=== PATIENT | female | born 1945 | race Caucasian/White ===

== ENCOUNTER 2018-07-22 14:24 | Outpatient (RCR) | payer MEDICARE, OTHER, MEDICAID ==
[2018-07-25] MEDS ORDERED: FLUO20CA42 PO (13:13)
[2018-07-25] MEDS ORDERED: THYR25PO4 MC (13:13)
[2018-07-25] MEDS ORDERED: HYDR50TA76 PO (13:14)
[2018-07-25] MEDS ORDERED: CEPH-507 PO (16:06)
== END 2018-09-10 08:15 | disposition home or self-care (01) ==
PROVIDERS: ATTEND Nurse Practitioner Family
DX: M25.512 Pain in left shoulder (principal)

== ENCOUNTER 2018-07-25 12:40 | Emergency (ER) | payer MEDICARE, OTHER, MEDICAID ==
[~2018-07-25] VITALS: Ht 170.2 cm; Wt 96.2 kg
[2018-07-25] MEDS ORDERED: LACTATED RINGERS 1,000 ML IV ONE (12:58)
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
[2018-07-25] MEDS ORDERED: THYR25PO4 MC (13:13)
[2018-07-25] MEDS ORDERED: FLUO20CA42 PO (13:13)
[2018-07-25] MEDS ORDERED: HYDR50TA76 PO (13:14)
[2018-07-25 13:25] LABS: BASOPHILS % (AUTO) 0 % (0-10); EOSINOPHILS % (AUTO) 0 % (0-10); HEMATOCRIT 39 % (35-52); HEMOGLOBIN 12.5 G/DL (11.5-16.0); LYMPHOCYTES # (AUTO) 0.9 X 10^3 (1.0-4.0); LYMPHOCYTES % (AUTO) 12 % (12-44); MEAN CORPUSCULAR HEMOGLOBIN 29 PG (25-34); MEAN CORPUSCULAR HGB CONC 32 G/DL (32-36); MEAN CORPUSCULAR VOLUME 91 FL (80-99); MEAN PLATELET VOLUME 9.5 FL (7.4-10.4); MONOCYTES # (AUTO) 0.5 X 10^3 (0.0-1.0); MONOCYTES % (AUTO) 6 % (0-12); NEUTROPHILS # (AUTO) 6.3 X 10^3 (1.8-7.8); NEUTROPHILS % (AUTO) 81 % (42-75); PLATELET COUNT 278 10^3/uL (130-400); RED CELL DISTRIBUTION WIDTH 14.3 % (10.0-14.5); WHITE BLOOD COUNT 7.7 10^3/uL (4.3-11.0)
--- NOTE | 2018-07-25 13:26 | ED Fall/Injury ---
General Chief Complaint: Trauma-Non Activation Stated Complaint: WEAKNESS/FALL Nursing Triage Note: PT CO OF WEAKNESS AND FALL IN BATHROOM. PT STATES HAS WEAKNESS UNABLE TO GET UP TO WHEN FALL. PT DENIES LOC, DENIES INJURY CO OF WEAKNESS. PT ARRIVED PER EMS. HAS SL IN R HAND PT STATES WAS ON FLOOR FOR 2 HOURS. Source: patient Exam Limitations: no limitations History of Present Illness Date Seen by Provider: Jul 25, 2018 Time Seen by Provider: 13:00 Initial Comments This 73-year-old woman presents to the emergency room via EMS because of weakness and collapse at home. She has had progressive weakness throughout the morning and finally fell and was not able to get up. She laid on the floor for about 2 hours. She denies any traumatic injury with the fall. She has had chronic left shoulder pain for which she is doing self therapy. She also describes a benign brain tumor that is being tracked by her primary care provider and a neurosurgical team at [facility]. She reports her most recent scan done a few weeks back showed a slight increase in size. Patient denies any focal neurologic deficits. Her weakness is global and seems to affect the lower extremities more than the upper. She also has a tremor that seems exacerbated today. She occasionally has diarrhea but denies any acute episodes of vomiting or diarrhea. She denies urinary symptoms. She denies chest pain or shortness of breath. Patient denies any head or neck injury. She did lightly strike her head on the carpeted floor but does not feel that she was injured. Patient's primary care provider is Aubree Adams. Location Injury Occurred: HOME Allergies and Home Medications Allergies Coded Allergies: No Known Drug Allergies (Unverified , 07/25/18) Home Medications Cephalexin 500 Mg Capsule, 500 MG PO TID Prescribed by: YARA VALVERDE on 07/25/18 4734 Patient Home Medication List Home Medication List Reviewed: Yes Review of Systems Review of Systems Constitutional: see HPI Eyes: No Symptoms Reported Ears, Nose, Mouth, Throat: no symptoms reported Respiratory: no symptoms reported Cardiovascular: no symptoms reported Gastrointestinal: see HPI Genitourinary: no symptoms reported : No Musculoskeletal: see HPI Skin: no symptoms reported Psychiatric/Neurological: See HPI Past Lsobhpu-Gspwmg-Debajn Hx Past Med/Social Hx: Reviewed and Corrections made Patient Social History Alcohol Use: Denies Use Recreational Drug Use: No Smoking Status: Never a Smoker Recent Foreign Travel: No Contact w/Someone Who Travel: No Recent Infectious Disease Expo: No Recent Hopitalizations: No Physical Abuse: No Sexual Abuse: No Seasonal Allergies Seasonal Allergies: No Past Medical History Surgeries: No Respiratory: No Cardiac: Yes Hypertension Neurological: Yes (meningioma) Gastrointestinal: No Musculoskeletal: Yes (L SHOULDER PAIN) Endocrine: Yes Hypothyroidsim Cancer: Yes Brain (Meningioma, not yet characterized as cancer) Psychosocial: Yes Anxiety Integumentary: No Physical Exam Vital Signs Vital Signs - First Documented 07/25/18 12:40 Temp 98.1 Pulse 80 Resp 18 B/P (MAP) 175/88 (117) Pulse Ox 95 Capillary Refill : Less Than 3 Seconds Height, Weight, BMI Height: 5'7.00" Weight: 212lbs. oz. 96.662197fd; BMI Method:Stated General Appearance: WD/WN, no apparent distress HEENT: normal ENT inspection Neck: non-tender, full range of motion, normal inspection Cardiovascular: regular rate, rhythm, no edema, no murmur Respiratory: lungs clear, normal breath sounds, no respiratory distress, no accessory muscle use Gastrointestinal: normal bowel sounds, non tender, soft Extremities: normal inspection, no pedal edema Neurologic/Psychiatric: streetcar starter II-XII nml as tested, no motor/sensory deficits, alert, normal mood/affect, oriented x 3 Skin: normal color, warm/dry Hyacinth Coma Score Best Eye Response: (4) Open Spontaneously Best Verbal Response: (5) Oriented Best Motor Response: (6) Obeys Commands [place] Total: 15 Progress/Results/Core Measures Results/Orders Lab Results Laboratory Tests Test 07/25/18 12:45 07/25/18 13:38 Range/Units White Blood Count 7.7 4.3-11.0 10^3/uL Red Blood Count 4.31 L 4.35-5.85 10^6/uL Hemoglobin 12.5 11.5-16.0 G/DL Hematocrit 39 35-52 % Mean Corpuscular Volume 91 80-99 FL Mean Corpuscular Hemoglobin 29 25-34 PG Mean Corpuscular Hemoglobin Concent 32 32-36 G/DL Red Cell Distribution Width 14.3 10.0-14.5 % Platelet Count 278 130-400 10^3/uL Mean Platelet Volume 9.5 7.4-10.4 FL Neutrophils (%) (Auto) 81 H 42-75 % Lymphocytes (%) (Auto) 12 12-44 % Monocytes (%) (Auto) 6 0-12 % Eosinophils (%) (Auto) 0 0-10 % Basophils (%) (Auto) 0 0-10 % Neutrophils # (Auto) 6.3 1.8-7.8 X 10^3 Lymphocytes # (Auto) 0.9 L 1.0-4.0 X 10^3 Monocytes # (Auto) 0.5 0.0-1.0 X 10^3 Eosinophils # (Auto) 0.0 0.0-0.3 10^3/uL Basophils # (Auto) 0.0 0.0-0.1 10^3/uL Sodium Level 142 135-145 MMOL/L Potassium Level 4.8 3.6-5.0 MMOL/L Chloride Level 107 98-107 MMOL/L Carbon Dioxide Level 21 21-32 MMOL/L Anion Gap 14 5-14 MMOL/L Blood Urea Nitrogen 19 H 7-18 MG/DL Creatinine 0.82 0.60-1.30 MG/DL Estimat Glomerular Filtration Rate > 60 BUN/Creatinine Ratio 23 Glucose Level 110 H 70-105 MG/DL Calcium Level 9.3 8.5-10.1 MG/DL Corrected Calcium 9.5 8.5-10.1 MG/DL Magnesium Level 2.7 H 1.8-2.4 MG/DL Total Bilirubin 0.3 0.1-1.0 MG/DL Aspartate Amino Transf (AST/SGOT) 38 H 5-34 U/L Alanine Aminotransferase (ALT/SGPT) 17 0-55 U/L Alkaline Phosphatase 66 40-136 U/L Total Creatine Kinase 210 H 29-168 U/L C-Reactive Protein High Sensitivity 0.24 0.00-0.50 MG/DL Total Protein 7.5 6.4-8.2 GM/DL Albumin 3.8 3.2-4.5 GM/DL Thyroid Stimulating Hormone (TSH) 1.58 0.35-4.94 UIU/ML Free Thyroxine 0.77 0.70-1.48 NG/DL Urine Color YELLOW Urine Clarity CLEAR Urine pH 5 5-9 Urine Specific [place] 1.025 H 1.016-1.022 Urine Protein 1+ H NEGATIVE Urine Glucose (UA) NEGATIVE NEGATIVE Urine Ketones 1+ H NEGATIVE Urine Nitrite NEGATIVE NEGATIVE Urine Bilirubin NEGATIVE NEGATIVE Urine Urobilinogen NORMAL NORMAL MG/DL Urine Leukocyte Esterase 1+ H NEGATIVE Urine RBC (Auto) 5+ H NEGATIVE Urine RBC 50-100 H /HPF Urine WBC 10-25 H /HPF Urine Squamous Epithelial Cells RARE /HPF Urine Crystals NONE /LPF Urine Bacteria LARGE H /HPF Urine Casts NONE /LPF Urine Mucus LARGE H /LPF Urine Culture Indicated NO My Orders Orders - YARA NEWTON MD Cbc With Automated Diff (07/25/18 12:58) Comprehensive Metabolic Panel (07/25/18 12:58) Hs C Reactive Protein (07/25/18 12:58) Magnesium (07/25/18 12:58) Thyroid Stimulating Hormone (07/25/18 12:58) Ua Culture If Indicated (07/25/18 12:58) Creatine Kinase (07/25/18 12:58) Ct Head Wo (07/25/18 12:58) Saline Lock/Iv-Start (07/25/18 12:58) Lactated Ringers (Lr 1000 Ml Iv Solution (07/25/18 12:58) Ekg Tracing (07/25/18 12:58) Free T4 (Free Thyroxine) (07/25/18 13:26) Ceftriaxone For Iv Use (Rocephin For I (07/25/18 14:30) General/Regular (07/25/18 Dinner) Medications Given in ED Vital Signs/I&O 07/25/18 07/25/18 12:40 16:23 Temp 98.1 Pulse 80 80 Resp 18 18 B/P (MAP) 175/88 (117) 160/78 (105) Pulse Ox 95 95 07/26/18 00:00 Intake Total 1010 ml Balance 1010 ml Blood Pressure Mean: 117 Progress Progress Note : Progress Note Workup was pursued to evaluate causes of her weakness including CT of the head given history of brain mass. CT revealed an area of edema associated with meningioma. Acuity of this finding was uncertain. Since patient has no focal neurologic deficits, it is likely unrelated to her complaints today. However, stability needs to be insured. CT was sent via cloud to [facility]. I discussed the case with Dr. Valdez, stroke neurologist. She compared the CT with the MRI brain she had at [facility] on July 08. There were no significant interval changes on comparison. Patient was able to ambulate to the bathroom on her own power. She was provided assistance with a walker. The walker was dispensed to take home. She was dismissed home with arrangements to have a taxicab take her home and law-enforcement or fire to help her get in the house. Admission was discussed but patient felt safe being discharged and requested going home. I contacted being discharged to help facilitate patient's follow-up. Dr. Valdez recommended prompt follow-up with a neurosurgeon. Patient had previously planned to follow-up with a neurosurgeon she had seen in [place] at the [facility]. However, this is very far away and she has no connections to [place] other than previously living there. She is amenable to seeing a neurosurgeon closer to [place]. The [facility] clinic can help her arrange this during the workweek. Initial ECG Impression Date: Jul 25, 2018 Initial ECG Impression Time: 13:09 Initial ECG Rate: 80 Initial ECG Rhythm: Normal Sinus Initial ECG Impression: Normal Comment Normal sinus rhythm with no ST elevation or depression. No abnormal intervals or axis deviation. Diagnostic Imaging Diagonstic Imaging: CT Plain Films/CT/US/NM/MRI: head Comments CT head viewed by me and report reviewed. Discussed with the radiologist. See report below: NAME: MIKO PETER [facility] REC#: [id number] PT STATUS: REG ER : 1945 PHYSICIAN: YARA NEWTON MD ADMIT DATE: 07/25/18/ER Signed Date of Exam: 07/25/18 CT HEAD WO PROCEDURE: CT head without contrast. TECHNIQUE: Multiple contiguous axial images were obtained through the brain without the use of intravenous contrast. INDICATION: Altered mental status, fall. COMPARISON: None. DISCUSSION: Extensive low attenuation noted diffusely throughout the white matter of the right cerebral hemisphere which is of uncertain etiology though most consistent with edema. This appears to contribute to mass effect as there is leftward midline shift of 9 mm. Whether this represents an acute infarct or edema from an underlying lesion is indeterminate. Extra-axial mass noted along the anterior falx projecting to the right measures 4.5 x 2.6 cm and contains a small area of calcification. This could represent a meningioma though is indeterminate. Recommend brain MRI with contrast for further characterization of these 2 areas. No hydrocephalus or intracranial hemorrhage identified. The orbits, sinuses, mastoid air cells, and calvarium are unremarkable. IMPRESSION: 1. Extensive edema noted throughout the right frontoparietal white matter contributing to mass effect and leftward midline shift. No hemorrhage is identified. Findings are nonspecific and could be seen with large infarct or underlying vasogenic edema from obscured lesion. There is a large extra-axial mass along the anterior falx projecting into the right frontal lobe. There is an area of what appears to be central calcification present. Recommend MRI with contrast for further evaluation. Dictated by: Dictated on workstation # [id number] Dict: 07/25/18 1354 Trans: 07/25/18 1552 Interpreted by: RONIT TATE MD Electronically signed by: RONIT TATE MD 07/25/18 1557 Departure Impression Primary Impression: Fall on same level Qualified Codes: W18.30XA - Fall on same level, unspecified, initial encounter Additional Impressions: Generalized weakness Urinary tract infection Qualified Codes: N39.0 - Urinary tract infection, site not specified Meningioma Disposition: HOME, SELF-CARE Condition: Improved Departure-Patient Inst. Decision time for Depature: 15:40 Referrals: AUBREE ADAMS APRN (PCP) Primary Care Physician [facility] (Family) Primary Care Physician Patient Instructions: Urinary Tract Infection, Adult (DC) Add. Discharge Instructions: Ambulate with your walker for safety. Drink plenty of clear liquids. Complete your antibiotics as prescribed. Follow-up with your primary care provider on Thursday or Thursday. Review urine culture results at that time. Follow-up with a neurosurgeon as soon as possible. Return to care if you have worsening symptoms. All discharge instructions reviewed with patient and/or family. Voiced understanding. Scripts Cephalexin (Keflex) 500 Mg Capsule 500 MG PO TID, #20 CAP Prov: YARA NEWTON MD 07/25/18 Copy Copies To 1: MIKO BRIGGS JOSHUA T MD Jul 25, 2018 13:25
[2018-07-25 13:42] LABS: BILIRUBIN,URINE NEGATIVE (NEGATIVE); CLARITY,URINE CLEAR; COLOR,URINE YELLOW; GLUCOSE, URINE (UA) NEGATIVE (NEGATIVE); KETONES,URINE 1+ (NEGATIVE); LEUKOCYTE ESTERASE ,URINE 1+ (NEGATIVE); NITRITE,URINE NEGATIVE (NEGATIVE); PH,URINE 5 (5-9); PROTEIN,URINE 1+ (NEGATIVE); UROBILINOGEN,URINE NORMAL (NORMAL)
[2018-07-25 13:43] LABS: ALANINE AMINOTRANSFERASE 17 U/L (0-55); ALBUMIN 3.8 GM/DL (3.2-4.5); ALKALINE PHOSPHATASE 66 U/L (40-136); BILIRUBIN,TOTAL 0.3 MG/DL (0.1-1.0); BUN/CREATININE RATIO 23; CALCIUM 9.3 MG/DL (8.5-10.1); CARBON DIOXIDE 21 MMOL/L (21-32); CHLORIDE 107 MMOL/L (98-107); CREATINE KINASE 210 U/L (29-168); CREATININE SERUM 0.82 MG/DL (0.60-1.30); GFR ESTIMATED > 60; GLUCOSE 110 MG/DL (70-105); MAGNESIUM 2.7 MG/DL (1.8-2.4); SODIUM 142 MMOL/L (135-145); TOTAL PROTEIN 7.5 GM/DL (6.4-8.2)
[2018-07-25 13:44] LABS: POTASSIUM 4.8 MMOL/L (3.6-5.0)
[2018-07-25 13:53] LABS: BACTERIA,URINE LARGE /HPF; RBC,URINE 50-100 /HPF; SQUAMOUS EPITHELIAL CELL,UR RARE /HPF
--- NOTE | 2018-07-25 14:02 | Diagnostic Imaging Report ---
PROCEDURE: CT head without contrast. TECHNIQUE: Multiple contiguous axial images were obtained through the brain without the use of intravenous contrast. INDICATION: Altered mental status, fall. COMPARISON: None. DISCUSSION: Extensive low attenuation noted diffusely throughout the white matter of the right cerebral hemisphere which is of uncertain etiology though most consistent with edema. This appears to contribute to mass effect as there is leftward midline shift of 9 mm. Whether this represents an acute infarct or edema from an underlying lesion is indeterminate. Extra-axial mass noted along the anterior falx projecting to the right measures 4.5 x 2.6 cm and contains a small area of calcification. This could represent a meningioma though is indeterminate. Recommend brain MRI with contrast for further characterization of these 2 areas. No hydrocephalus or intracranial hemorrhage identified. The orbits, sinuses, mastoid air cells, and calvarium are unremarkable. IMPRESSION: 1. Extensive edema noted throughout the right frontoparietal white matter contributing to mass effect and leftward midline shift. No hemorrhage is identified. Findings are nonspecific and could be seen with large infarct or underlying vasogenic edema from obscured lesion. There is a large extra-axial mass along the anterior falx projecting into the right frontal lobe. There is an area of what appears to be central calcification present. Recommend MRI with contrast for further evaluation. Dictated by: Dictated on workstation # [id number]
[2018-07-25] MEDS ORDERED: cefTRIAXone FOR IV USE 1,000 MG in WATER (STERILE) FOR INJECTION 10 ML IV ONE (14:30)
[2018-07-25] MEDS ORDERED: CEPH-507 PO (16:06)
[2018-07-25 16:23] VITALS: BP 160/78
--- NOTE | 2018-07-25 16:27 | NUR ---
[facility] CALLED BY PT
== END 2018-07-25 16:37 | disposition home or self-care (01) ==
LOC: EDUNIT# 12:55 → ER 12:56
DX: R53.1 Weakness (principal); N39.0 Urinary tract infection, site not specified; D32.0 Benign neoplasm of cerebral meninges; I10 Essential (primary) hypertension; E03.9 Hypothyroidism, unspecified; F41.9 Anxiety disorder, unspecified; R40.2142 Coma scale, eyes open, spontaneous, at arrival to emergency department; R40.2252 Coma scale, best verbal response, oriented, at arrival to emergency department; R40.2362 Coma scale, best motor response, obeys commands, at arrival to emergency department; W18.39XA Other fall on same level, initial encounter; Y92.009 Unspecified place in unspecified non-institutional (private) residence as the place of occurrence of the external cause
CPT/HCPCS: 36415; 70450; 80053; 81000; 82550; 83735; 84439; 84443; 85025; 86141; 93005

== ENCOUNTER 2018-07-26 12:54 | Emergency (ER) | payer MEDICARE, OTHER, MEDICAID ==
[~2018-07-26] VITALS: Ht 170.2 cm; Wt 95.3 kg
[~2018-07-26 12:54] MED LIST: CEPH-507 PO; FLUO20CA42 PO; HYDR50TA76 PO; THYR25PO4 MC
--- NOTE | 2018-07-26 13:33 | ED General ---
General Chief Complaint: General Problems/Pain Stated Complaint: WEAKNESS Nursing Triage Note: PT ARRIVED PER EMS, PT HAD EASED SELF TO BATHROOM FLOOR. PT DENIES PAIN AT THIS X. STATES DOES NOT KNOW WHY IS SO WEAK, PT REMINDED WAS SEEN IN ED YESTERDAY AND HAD UTI, PT STATES OH YEAH, I HAVE NOT TAKEN ANY OF MY MEDS TODAY. PT STATES DID NOT GET UP VERY EARLY TODAY. Nursing Sepsis Screen: No Definite Risk Source of Information: Patient Exam Limitations: No Limitations History of Present Illness Date Seen by Provider: Jul 26, 2018 Time Seen by Provider: 13:31 Initial Comments To ER per EMS from home with reports of generalized weakness. Patient was here yesterday for the same, diagnosed with urinary tract infection and refused admission. She was given IV antibiotics, sent home with a prescription for Keflex, she did get the prescription filled but has not yet taken it today. She denies fevers or chills, today she went to the toilet, stood up and then bent forward to strip picker a towel. When she attempted to stand back up she felt so weak that she could not do so. She's had diarrhea and has been incontinent of stool today as well. She states that she did not strike her head on anything and the fall to the floor was in fact not a fall but she lowered herself to the floor slowly. She denies any pain or other symptoms other than generalized weakness [facility] These episodes of falling and generalized weakness have been increasing. Timing/Duration: 1-2 Days Severity: Moderate Associated Systoms: Weakness Allergies and Home Medications Allergies Coded Allergies: No Known Drug Allergies (Unverified , 07/25/18) Home Medications Cephalexin 500 Mg Capsule, 500 MG PO TID Prescribed by: YARA VALVERDE on 07/25/18 4444 Patient Home Medication List Home Medication List Reviewed: Yes Review of Systems Review of Systems Constitutional: see HPI EENTM: see HPI Respiratory: no symptoms reported Cardiovascular: no symptoms reported Genitourinary: no symptoms reported Musculoskeletal: no symptoms reported Skin: no symptoms reported Psychiatric/Neurological: No Symptoms Reported Past [place]rp Hx Patient Social History Alcohol Use: Regular Use Number of Drinks Today: 0 Recreational Drug Use: No Smoking Status: Current Everyday Smoker Type Used: Cigarettes Recent Foreign Travel: No Contact w/Someone Who Travel: No Recent Infectious Disease Expo: No Recent Hopitalizations: No Seasonal Allergies Seasonal Allergies: No Past Medical History Surgeries: No Respiratory: No Cardiac: Yes Hypertension Neurological: Yes (meningioma) Gastrointestinal: No Musculoskeletal: Yes (L SHOULDER PAIN) Endocrine: Yes Hypothyroidsim Cancer: No Psychosocial: Yes Anxiety Integumentary: No Physical Exam Vital Signs Vital Signs - First Documented 07/26/18 12:55 Temp 98.0 Pulse 7 Resp 18 B/P (MAP) 150/87 (108) Pulse Ox 95 O2 Delivery Room Air Capillary Refill : Less Than 3 Seconds Height, Weight, BMI Height: 5'7.00" Weight: 210lbs. oz. 95.762891vl; BMI Method:Stated General Appearance: No Apparent Distress, WD/WN Eyes: Bilateral Eye Normal Inspection, Bilateral Eye PERRL, Bilateral Eye EOMI HEENT: PERRL/EOMI, TMs Normal Respiratory: No Accessory Muscle Use, No Respiratory Distress Gastrointestinal: Non Tender, Soft Extremity: Normal Capillary Refill, Normal Inspection Neurologic/Psychiatric: Alert, Oriented x3 Skin: Normal Color, Warm/Dry Focused Exam Lactate Level 07/26/18 15:15: Lactic Acid Level 1.04 Lactic Acid Level Laboratory Tests Test 07/26/18 15:15 Lactic Acid Level 1.04 MMOL/L (0.50-2.00) Progress/Results/Core Measures Suspected Sepsis Recent Fever Within 48 Hours: No Infection Criteria Present: None New/Unexplained Altered Menta: No Sepsis Screen: No Definite Risk SIRS Temperature:98.0 Pulse: 7 Respiratory Rate: 18 Laboratory Tests 07/26/18 13:50: White Blood Count 6.7 Blood Pressure 150 /87 Mean: 108 07/26/18 15:15: Lactic Acid Level 1.04 Laboratory Tests 07/26/18 13:50: Creatinine 0.76, Platelet Count 266, Total Bilirubin 0.4 Results/Orders Lab Results Laboratory Tests Test 07/26/18 13:50 07/26/18 15:15 07/26/18 15:40 Range/Units White Blood Count 6.7 4.3-11.0 10^3/uL Red Blood Count 3.91 L 4.35-5.85 10^6/uL Hemoglobin 11.4 L 11.5-16.0 G/DL Hematocrit 36 35-52 % Mean Corpuscular Volume 91 80-99 FL Mean Corpuscular Hemoglobin 29 25-34 PG Mean Corpuscular Hemoglobin Concent 32 32-36 G/DL Red Cell Distribution Width 14.2 10.0-14.5 % Platelet Count 266 130-400 10^3/uL Mean Platelet Volume 9.0 7.4-10.4 FL Neutrophils (%) (Auto) 77 H 42-75 % Lymphocytes (%) (Auto) 14 12-44 % Monocytes (%) (Auto) 8 0-12 % Eosinophils (%) (Auto) 1 0-10 % Basophils (%) (Auto) 0 0-10 % Neutrophils # (Auto) 5.2 1.8-7.8 X 10^3 Lymphocytes # (Auto) 1.0 1.0-4.0 X 10^3 Monocytes # (Auto) 0.5 0.0-1.0 X 10^3 Eosinophils # (Auto) 0.1 0.0-0.3 10^3/uL Basophils # (Auto) 0.0 0.0-0.1 10^3/uL Sodium Level 144 135-145 MMOL/L Potassium Level 3.8 3.6-5.0 MMOL/L Chloride Level 108 H 98-107 MMOL/L Carbon Dioxide Level 24 21-32 MMOL/L Anion Gap 12 5-14 MMOL/L Blood Urea Nitrogen 13 7-18 MG/DL Creatinine 0.76 0.60-1.30 MG/DL Estimat Glomerular Filtration Rate > 60 BUN/Creatinine Ratio 17 Glucose Level 111 H 70-105 MG/DL Calcium Level 9.1 8.5-10.1 MG/DL Corrected Calcium 9.3 8.5-10.1 MG/DL Total Bilirubin 0.4 0.1-1.0 MG/DL Aspartate Amino Transf (AST/SGOT) 33 5-34 U/L Alanine Aminotransferase (ALT/SGPT) 18 0-55 U/L Alkaline Phosphatase 61 40-136 U/L Total Protein 6.5 6.4-8.2 GM/DL Albumin 3.7 3.2-4.5 GM/DL Lactic Acid Level 1.04 0.50-2.00 MMOL/L Urine Color YELLOW Urine Clarity SLIGHTLY CLOUDY Urine pH 6 5-9 Urine Specific [place] 1.015 L 1.016-1.022 Urine Protein NEGATIVE NEGATIVE Urine Glucose (UA) NEGATIVE NEGATIVE Urine Ketones 1+ H NEGATIVE Urine Nitrite NEGATIVE NEGATIVE Urine Bilirubin NEGATIVE NEGATIVE Urine Urobilinogen NORMAL NORMAL MG/DL Urine Leukocyte Esterase NEGATIVE NEGATIVE Urine RBC (Auto) 2+ H NEGATIVE Urine RBC NONE /HPF Urine WBC NONE /HPF Urine Squamous Epithelial Cells RARE /HPF Urine Crystals NONE /LPF Urine Bacteria NEGATIVE /HPF Urine Casts NONE /LPF Urine Mucus NEGATIVE /LPF Urine Culture Indicated NO My Orders Orders - JERZY THOMAS BILLIARD PARLOR MANAGER Cbc With Automated Diff (07/26/18 13:10) Comprehensive Metabolic Panel (07/26/18 13:10) Ua Culture If Indicated (07/26/18 13:10) Chest 1 View, Ap/Pa Only (07/26/18 13:10) Iv Heplock-Insert (Order) (07/26/18 13:10) Pt Evaluate/Treat Request (07/26/18 14:20) Weight Bearing Status (07/26/18 14:20) Ct Chest W (07/26/18 14:23) Blood Culture (07/26/18 14:23) Lactic Acid Analyzer (07/26/18 14:23) Iohexol Injection (Omnipaque 350 Mg/Ml 1 (07/26/18 14:45) Received Contrast (Contrast Received) (07/26/18 14:45) Ns (Ivpb) (Sodium Chloride 0.9% Ivpb Bag (07/26/18 14:45) Patient Visit (07/26/18 ) Pt Eval Moderate Complexity (07/26/18 ) Functional Activities, Ea 15 (07/26/18 ) Acetaminophen Tablet/Caplet (Tylenol T (07/26/18 16:15) General/Regular (07/26/18 Lunch) Medications Given in ED Current Medications Medications Dose Ordered Sig/Christy Route Start Time Stop Time Status Last Admin Dose Admin Acetaminophen 650 mg ONCE ONCE PO 07/26/18 16:15 07/26/18 16:16 DC 07/26/18 16:23 650 MG Iohexol 75 ml ONCE ONCE IV 07/26/18 14:45 07/26/18 14:46 DC 07/26/18 14:45 75 ML Sodium Chloride 100 ml ONCE ONCE IV 07/26/18 14:45 07/26/18 14:46 DC 07/26/18 14:45 80 ML Vital Signs/I&O 3/11/19 12:55 Temp 98.0 Pulse 7 Resp 18 B/P (MAP) 150/87 (108) Pulse Ox 95 O2 Delivery Room Air Capillary Refill : Less Than 3 Seconds Blood Pressure Mean: 108 Diagnostic Imaging Diagonstic Imaging: CT Departure Communication (Admissions) Family Conversation Patient's sister, VIJAY Meehan ([phone]) from [place] has called to report that the patient's falls have increased. She has this known right meningioma with a left midline shift of 9 mm, this is been present including the shift of 9 mm since last year when this was identified. She states that her mother had dementia that presented about this age as well. She is agreeable with my plan to transfer the patient on to [facility] for neurology evaluation. 1640-Dr Solo (hospitalist) and Dr Hilton (neurosurgery) agree to accept pt in transfer to [facility]. 1420- NAME: MIKO PETER [facility] REC#: [id number] PHYSICIAN: YARA NEWTON MD CC: YARA NEWTON MD; RONIT TATE MD Page 2 of 2 RADIOLOGY REPORT [facility] [place] CC: YARA NEWTON MD; RONIT TATE MD Page 1 of 2 RADIOLOGY REPORT NAME: MIKO PETER [facility] REC#: [id number] PT STATUS: REG ER : 1945 PHYSICIAN: YARA NEWTON MD ADMIT DATE: 07/25/18/ER Signed Date of Exam: 07/25/18 CT HEAD WO PROCEDURE: CT head without contrast. TECHNIQUE: Multiple contiguous axial images were obtained through the brain without the use of intravenous contrast. INDICATION: Altered mental status, fall. COMPARISON: None. DISCUSSION: Extensive low attenuation noted diffusely throughout the white matter of the right cerebral hemisphere which is of uncertain etiology though most consistent with edema. This appears to contribute to mass effect as there is leftward midline shift of 9 mm. Whether this represents an acute infarct or edema from an underlying lesion is indeterminate. Extra-axial mass noted along the anterior falx projecting to the right measures 4.5 x 2.6 cm and contains a small area of calcification. This could represent a meningioma though is indeterminate. Recommend brain MRI with contrast for further characterization of these 2 areas. No hydrocephalus or intracranial hemorrhage identified. The orbits, sinuses, mastoid air cells, and calvarium are unremarkable. IMPRESSION: 1. Extensive edema noted throughout the right frontoparietal white matter contributing to mass effect and leftward midline shift. No hemorrhage is identified. Findings are nonspecific and could be seen with large infarct or underlying vasogenic edema from obscured lesion. There is a large extra-axial mass along the anterior falx projecting into the right frontal lobe. There is an area of what appears to be central calcification present. Recommend MRI with contrast for further evaluation. Dictated by: Dictated on workstation # [id number] Dict: 07/25/18 1354 Trans: 07/25/18 1557 Interpreted by: RONIT TATE MD Electronically signed by: RONIT TATE MD 07/25/18 1557 Impression Primary Impression: General weakness Additional Impressions: Meningioma Vasogenic brain edema Disposition: XFER SHT-TRM HOSP Condition: Stable Departure-Patient Inst. Referrals: AUBREE MILLIGAN APRN (PCP) Primary Care Physician [facility] (Family) Primary Care Physician JERZY THOMAS APRN Jul 26, 2018 13:33
[2018-07-26 14:03] LABS: BASOPHILS % (AUTO) 0 % (0-10); EOSINOPHILS # (AUTO) 0.1 10^3/uL (0.0-0.3); EOSINOPHILS % (AUTO) 1 % (0-10); HEMATOCRIT 36 % (35-52); HEMOGLOBIN 11.4 G/DL (11.5-16.0); LYMPHOCYTES % (AUTO) 14 % (12-44); MEAN CORPUSCULAR HEMOGLOBIN 29 PG (25-34); MEAN CORPUSCULAR HGB CONC 32 G/DL (32-36); MEAN CORPUSCULAR VOLUME 91 FL (80-99); MONOCYTES # (AUTO) 0.5 X 10^3 (0.0-1.0); MONOCYTES % (AUTO) 8 % (0-12); NEUTROPHILS # (AUTO) 5.2 X 10^3 (1.8-7.8); NEUTROPHILS % (AUTO) 77 % (42-75); PLATELET COUNT 266 10^3/uL (130-400); RED CELL DISTRIBUTION WIDTH 14.2 % (10.0-14.5); WHITE BLOOD COUNT 6.7 10^3/uL (4.3-11.0)
--- NOTE | 2018-07-26 14:11 | Diagnostic Imaging Report ---
INDICATION: Weakness. TIME OF EXAM: 01:57 p.m. COMPARISON: No prior studies are available for comparison. FINDINGS: There appears to be some consolidation in the right base. Left lung is clear. Pulmonary vascularity is normal. There is no effusion or pneumothorax. IMPRESSION: Right basilar consolidation. Dictated by: Dictated on workstation # [id number]
--- NOTE | 2018-07-26 14:17 | NUR ---
REHAB HERE TO RUPESH GONZALEZ
[2018-07-26 14:21] LABS: ALANINE AMINOTRANSFERASE 18 U/L (0-55); ALBUMIN 3.7 GM/DL (3.2-4.5); ALKALINE PHOSPHATASE 61 U/L (40-136); BILIRUBIN,TOTAL 0.4 MG/DL (0.1-1.0); BUN/CREATININE RATIO 17; CALCIUM 9.1 MG/DL (8.5-10.1); CARBON DIOXIDE 24 MMOL/L (21-32); CHLORIDE 108 MMOL/L (98-107); CREATININE SERUM 0.76 MG/DL (0.60-1.30); GFR ESTIMATED > 60; GLUCOSE 111 MG/DL (70-105); POTASSIUM 3.8 MMOL/L (3.6-5.0); SODIUM 144 MMOL/L (135-145); TOTAL PROTEIN 6.5 GM/DL (6.4-8.2)
[2018-07-26] MEDS ORDERED: RECEIVED CONTRAST 20 ML VIAL IV SCH (14:45)
[2018-07-26] MEDS ORDERED: NS 100 ML (IVPB) BAG IV ONE (14:45)
[2018-07-26] MEDS ORDERED: IOHEXOL 350 MG/ML 100 ML (OMNIPAQUE 350) VIAL IV ONE (14:45)
--- NOTE | 2018-07-26 15:38 | Physical Therapy Evaluation ---
PT Evaluation-General Medical Diagnosis Admission Date 07/26/18 Medical Diagnosis: weakness Onset Date: Jul 26, 2018 Therapy Diagnosis Therapy Diagnosis: impaired mobility, endurance, strength Height/Weight Height (Feet): 5 Height (Inches): 7.00 Weight (Pounds): 210 Weight Bear Status Right Lower Extremity: Right Full Weight Bearing Left Lower Extremity: Left Full Weight Bearing Referral Physician: Drew Villaseñor APRN Reason for Referral: Evaluation/Treatment Medical History Pertinent Medical History: Smoking Additional Medical History Past Medical History Surgeries: No Respiratory: No Cardiac: Yes Hypertension Neurological: Yes (meningioma) Gastrointestinal: No Musculoskeletal: Yes (L SHOULDER PAIN) Endocrine: Yes Hypothyroidsim Cancer: No Psychosocial: Yes Anxiety Current History Patient has been falling at home and has generalized weakness, diagnosed recently with UTI. Reviewed History: Yes Prior/Core FIM Prior Level of Function Therapy Code Descriptions/Definitions Functional [place] Measure: 0=Not Assessed/NA 4=Minimal Assistance 1=Total Assistance 5=Supervision or Setup 2=Maximal Assistance 6=Modified [place] 3=Moderate Assistance 7=Complete [place] Therapy Quality Codes: 6 Independent with activity with or without an assistive device 5 Patient requires set up or clean up by helper. Patient completes activity by themselves 4 Supervision or touching assist (CGA). [place] provide cues , steadying assist 3 The helper provides less than half the effort to complete the activity 2 The helper provides more than half the effort to complete the activity 1 Dependent. The helper does all the effort to complete an activity 7 Patient refused to complete or attempt activity 9 The patient did not perform the activity before the current illness or injury 88 Not attempted due to Medical conditions or safety concerns Functional Abilities and Goals: Independent: Patient completed the activities by him/herself, with or without an assistive device, with no assistance from a helper. Needed Some Help: Patient needed partial assistance from another person to complete activities. Dependent: A helper completed the activities for the patient. Unknown: Not Applicable: Bed Mobility: 7 Transfers (B,C,W/C) (FIM): 7 Gait: 7 Indoor Mobility (Ambulation): Independent Stairs: Independent PT Evaluation-Current Subjective Patient in bed pre tx, agrees to PT, has minor pain in neck and left shoulder. Pt/Family Goals "to get stronger so I can walk better again" Objective Patient Orientation: Person, Place, Situation ROM/Strength ROM Lower Extremities WNL Strength Lower Extremities right lower extremity (hip flexion 3+/5, knee flexion 4+5, knee extension 4+/5, dorsiflexion 5/5), left lower extremity (hip flexion 3+/5, knee flexion 4+5, knee extension 4+/5, dorsiflexion 5/5) Neuromuscular (Tone, Coordination, Reflexes) Patient state that she has blurriness of vision when she fell but is seemed to resolve quickly. She has intact peripheral vision and good tracking, possibly a slight droop on the left side of mouth, no tongue deviation. Patient reports no changes in hearing or swallowing. Sensory Vision: Wears Glasses Hearing: Functional Sensation Right Lower Extremit: Intact Sensation Left Lower Extremity: Intact Transfers Therapy Code Descriptions/Definitions Functional [place] Measure: 0=Not Assessed/NA 4=Minimal Assistance 1=Total Assistance 5=Supervision or Setup 2=Maximal Assistance 6=Modified [place] 3=Moderate Assistance 7=Complete [place] Transfers (B, C, W/C) (FIM): 4 Scootin Rollin Supine to/from Sit: 5 Sit to/from Stand: 4 CGA for sit to stand Gait Mode of Locomotion: Walk Anticipated Mode of Locomotion: Walk Gait (FIM): 4 Distance: 150' Gait Level of Assist: 4 Gait Persons Needed: 1 Gait Assistive Device: FWW Comments/Gait Description CGA, some unsteadiness but no LOB, brisk ambulation. Balance Sitting Static: Normal Sitting Dynamic: Normal Standing Static: Good Standing Dynamic: Fair Assessment/Needs Patient has impaired general mobility, endurance, strength. She needs somebody with her when ambulating and needs to use a walker. Patient may be sent to an inpatient room if so, we will follow. Rehab Potential: Fair PT Short Term Goals Short Term Goals Time Frame: Aug 02, 2018 Transfers (B,C,W/C) (FIM): 5 Gait (FIM): 5 Gait Distance Comment: 200' Gait Level of Assist: 5 Gait Assistive Device: FWW PT Plan Problem List Problem List: Activity Tolerance, Functional Strength, Safety, Balance, Gait, Transfer Treatment/Plan Treatment Plan: Continue Plan of Care Treatment Plan: Bed Mobility, Education, Functional Activity Mely, Functional Strength, Gait, Safety, Therapeutic Exercise, Transfers Treatment Duration: Aug 02, 2018 Frequency: 6 times per week Estimated Hrs Per Day: .25 hour per day (15-30') Patient and/or Family Agrees t: Yes Safety Risks/Education Patient Education: Gait Training, Transfer Techniques, Correct Positioning, Safety Issues Teaching Recipient: Patient Teaching Methods: Demonstration, Discussion Response to Teaching: Reinforcement Needed Discharge Recommendations Plan Patient will perform bed mobility and transfer training, balance and endurance training, functional strengthening, stair training, gait training, and education to improve functional mobility and independence at home. Therapy D/C Recommendations: Home w/ Family Support Time/GCodes Time In: 1345 Time Out: 1415 Total Billed Treatment Time: 30 Total Billed Treatment 1 visit EVL 20' FA 10' RASHAD VELA PT Jul 26, 2018 15:38
[2018-07-26 15:54] LABS: BILIRUBIN,URINE NEGATIVE (NEGATIVE); CLARITY,URINE SLIGHTLY CLOUDY; COLOR,URINE YELLOW; GLUCOSE, URINE (UA) NEGATIVE (NEGATIVE); KETONES,URINE 1+ (NEGATIVE); LEUKOCYTE ESTERASE ,URINE NEGATIVE (NEGATIVE); NITRITE,URINE NEGATIVE (NEGATIVE); PH,URINE 6 (5-9); PROTEIN,URINE NEGATIVE (NEGATIVE); UROBILINOGEN,URINE NORMAL (NORMAL)
[2018-07-26 16:08] LABS: BACTERIA,URINE NEGATIVE /HPF; SQUAMOUS EPITHELIAL CELL,UR RARE /HPF
[2018-07-26] MEDS ORDERED: ACETAMINOPHEN 325 MG TABLET PO ONE (16:15)
--- NOTE | 2018-07-26 17:00 | NUR ---
PT ATE SUPPER TRAY AND DRINKING BOTTLE OF WATER
--- NOTE | 2018-07-26 17:47 | NUR ---
EMS CALLED FOR TRANSFER
--- NOTE | 2018-07-26 18:13 | NUR ---
EMS HERE TO TRANSFER PT TO [facility]
[2018-07-26 18:26] VITALS: BP 150/87
--- NOTE | 2018-07-26 19:01 | Diagnostic Imaging Report ---
PROCEDURE: CT chest with contrast only. TECHNIQUE: Multiple contiguous axial images were obtained through the chest after administration of intravenous contrast. INDICATION: Weakness and cough. CORRELATION is made with chest radiograph from earlier in the same day. FINDINGS: No axillary lymphadenopathy is seen. No definite hilar or mediastinal lymphadenopathy is seen. Right hemidiaphragm is elevated, accounting for the majority of the density noted on the chest x-ray. There is mild associated compressive atelectasis the right base, as well. Otherwise, the lungs are clear. No mass lesion is identified. There is a large hiatal hernia noted. No pericardial or pleural fluid is identified. Upper abdomen is unremarkable. IMPRESSION: Right hemidiaphragmatic elevation with mild associated right lower lobe subsegmental atelectasis. There is also a large hiatal hernia. The study is otherwise unremarkable. Dictated by: Dictated on workstation # [id number]
== END 2018-07-26 18:25 | disposition short-term general hospital (02) ==
LOC: EDUNIT# 12:54 → ER 12:55
DX: R53.1 Weakness (principal); D32.0 Benign neoplasm of cerebral meninges; I10 Essential (primary) hypertension; E03.9 Hypothyroidism, unspecified; F41.9 Anxiety disorder, unspecified; F17.210 Nicotine dependence, cigarettes, uncomplicated; Z86.011 Personal history of benign neoplasm of the brain
CPT/HCPCS: 36415; 71045; 71260; 80053; 81000; 83605; 85025; 87040

== ENCOUNTER → 2018-12-28 | Outpatient (RCR) | payer MEDICARE, OTHER | END | disposition home or self-care (01) | PROVIDERS: ATTEND Nurse Practitioner Community Health | DX: R27.0 Ataxia, unspecified (principal); F32.9 Major depressive disorder, single episode, unspecified; E06.3 Autoimmune thyroiditis ==

== ENCOUNTER 2019-02-23 16:00 | Outpatient (CLI) | payer MEDICARE, OTHER ==
[~2019-02-23] VITALS: Ht 170 cm; Wt 92.2 kg
[~2019-02-23 16:00] MED LIST changes: +HYDR-700 PO; +THYR60TA2 PO
== END 2019-02-23 16:08 | disposition home or self-care (01) ==
LOC: PREOP 16:00
PROVIDERS: ATTEND Surgery
DX: Z01.818 Encounter for other preprocedural examination (principal)